=== PATIENT | female | born 2005 | race Two or more races ===

== ENCOUNTER 2025-05-30 18:41 | Emergency (ER) | payer OTHER ==
[~2025-05-30] VITALS: Ht 165.1 cm; Wt 100.0 kg
[2025-05-30 19:03] VITALS: TEMP 100.2
[2025-05-30 19:06] LABS: COVID AG,FIA SOURCE NASAL SWAB
[2025-05-30 19:26] LABS: INFLUENZA TYPE A NEGATIVE FOR TYPE A (NEGATIVE); INFLUENZA TYPE B NEGATIVE FOR TYPE B (NEGATIVE); SARS-COV2 (COVID) ANTIGEN,FIA Negative (Negative)
[2025-05-30 19:56] VITALS: BP 118/82; PULSE 105; RESP 18; O2SAT 99
[2025-05-30] MEDS: KETOROLAC TROMETHAMINE 30 MG/ML VIAL IM ONE (21:11)
[2025-05-30] MEDS: ACETAMINOPHEN 325 MG TABLET PO ONE (21:25)
== END 2025-05-30 21:41 | disposition home or self-care (01) ==
LOC: EMS 18:41
DX: J06.9 Acute upper respiratory infection, unspecified (principal); R51.9 Headache, unspecified; R50.9 Fever, unspecified; J02.9 Acute pharyngitis, unspecified; Z98.890 Other specified postprocedural states; Z20.822 Contact with and (suspected) exposure to COVID-19
CPT/HCPCS: 99283; 87426; 87804; 96372; J1885